=== PATIENT | female | born 1985 | race Caucasian/White ===

== ENCOUNTER 2016-09-13 16:32 | Emergency (ER) | payer OTHER ==
[2016-09-13 16:41] VITALS: TEMP 98.2
--- NOTE | 2016-09-13 17:19 | ED ---
General Adult HPI - General Chief complaint: Recheck/Abnormal Lab/Rx Stated complaint: Stitches Opened Post Op Time Seen by Provider: 09/13/16 16:45 Source: patient, RN notes reviewed Mode of arrival: ambulatory Limitations: no limitations - History of Present Illness Initial comments: This patient is a 30-year-old woman who presents with the complaint of difficulty with bowel movements and pain at the anus. She relates that she had internal hemorrhoidectomy on August 29, by Dr. Amador. She was told that the follow-up, in the week that things looked good and that there was no infection. The patient states however that for the past week or so she is having increasing amounts of pain at the anus when she tries have a bowel movement. She is not able to pass stool well. She denies abdominal pain. No fever or chills. -: days(s) Quality: sharp Consistency: intermittent Improves with: none Worsens with: other (Bowel movement) Associated Symptoms: other (Constipation) - Related Data Home Medications Medication Instructions Recorded Confirmed Ibuprofen [Motrin] 800 mg PO Q8H PRN 09/13/16 09/13/16 Previous Rx's Medication Instructions Recorded Hydrocodone/Acetaminophen [[place] 1 each PO Q6HR PRN #20 tab 09/13/16 5-325] Allergies Allergy/AdvReac Type Severity Reaction Status Date / Time latex Allergy Rash/Hives Verified 09/13/16 17:01 Review of Systems ROS Statement: Those systems with pertinent positive or pertinent negative responses have been documented in the HPI. ROS Other: All systems not noted in ROS Statement are negative. Constitutional: Denies: fever, chills Respiratory: Reports: cough (Patient states she has a cold.). Denies: dyspnea Cardiovascular: Denies: chest pain, palpitations, syncope Gastrointestinal: Reports: constipation. Denies: abdominal pain, nausea, vomiting, diarrhea, melena, hematochezia Genitourinary: Denies: dysuria, hematuria Musculoskeletal: Denies: back pain Skin: Denies: rash Past Medical History Past Medical History: No Reported History Additional Past Medical History / Comment(s): Obstetric history: Her first delivery was a vaginal delivery 7 lbs. 6 oz. in 2012. This is her second . She's had care with Dr. Chavez since 8 weeks gestation. Blood type is A+, antibodies negative, rubella immune, hepatitis B surface antigen, RPR nonreactive. GBS positive. History of Any Multi-Drug Resistant Organisms: None Reported Past Surgical History: Tubal Ligation Additional Past Surgical History / Comment(s): hemorroidectomy Past Anesthesia/Blood Transfusion Reactions: No Reported Reaction Past Psychological History: No Psychological Hx Reported Smoking Status: Current every day smoker Past Alcohol Use History: None Reported Past Drug Use History: None Reported - Past Family History Father Family Medical History: Diabetes Mellitus General Exam Limitations: no limitations General appearance: alert, in no apparent distress Respiratory exam: Present: normal lung sounds bilaterally. Absent: respiratory distress, wheezes, rales, rhonchi, stridor Cardiovascular Exam: Present: regular rate (The rate is 92 at my exam), normal rhythm, normal heart sounds. Absent: systolic murmur, diastolic murmur, rubs, gallop GI/Abdominal exam: Present: soft, diminished bowel sounds. Absent: distended, tenderness, guarding, rebound, organomegaly, mass, pulsatile mass, hernia Rectal exam: Present: hemorrhoids, tenderness, other (The patient does have external hemorrhoid present, but they are not thrombosed and they're not tender. Patient does have anal stricture, which barely admits a finger for exam. There is also hard stool.). Absent: mass Extremities exam: Present: normal inspection, normal capillary refill. Absent: pedal edema, calf tenderness Back exam: Absent: CVA tenderness (R), CVA tenderness (L) Neurological exam: Present: alert Skin exam: Present: warm, dry, intact, normal color. Absent: rash Course Vital Signs 09/13/16 09/13/16 16:38 19:45 Temperature 98.2 F Pulse Rate 116 H 88 Respiratory 20 18 Rate Blood Pressure 119/66 112/68 O2 Sat by Pulse 98 96 Oximetry Medical Decision Making - Medical Decision Making Patient is a 30-year-old woman presenting with pain at the anus following a hemorrhoidectomy. The exam does not show signs of infection. The exam appears to show some stricture or spasm at the anus, and this appears to be causing the patient's pain. No palpable masses. The patient stated that her symptoms had resolved after oral analgesic. Discussed appropriate follow-up and further outpatient care. Also discussed return parameters. - Lab Data Result diagrams: 09/13/16 18:52 09/13/16 18:52 Lab Results 09/13/16 09/13/16 09/13/16 Range/Units 18:52 18:52 19:20 WBC 10.4 (3.8-10.6) k/uL RBC 4.82 (3.80-5.40) m/uL Hgb 13.5 (11.4-16.0) gm/dL Hct 43.5 (34.0-46.0) % MCV 90.3 (80.0-100.0) fL MCH 28.0 (25.0-35.0) pg MCHC 31.0 (31.0-37.0) g/dL RDW 12.9 (11.5-15.5) % Plt Count 275 (150-450) k/uL Neutrophils % 80 % Lymphocytes % 15 % Monocytes % 3 % Eosinophils % 1 % Basophils % 0 % Neutrophils # 8.3 H (1.3-7.7) k/uL Lymphocytes # 1.6 (1.0-4.8) k/uL Monocytes # 0.3 (0-1.0) k/uL Eosinophils # 0.1 (0-0.7) k/uL Basophils # 0.0 (0-0.2) k/uL ESR Cancelled 10 Sodium 143 (137-145) mmol/L Potassium 4.6 (3.5-5.1) mmol/L Chloride 104 (98-107) mmol/L Carbon Dioxide 24 (22-30) mmol/L Anion Gap 15 mmol/L BUN 14 (7-17) mg/dL Creatinine 0.60 (0.52-1.04) mg/dL Est GFR (MDRD) Af Amer >60 (>60 ml/min/1.73 sqM) Est GFR (MDRD) Non-Af >60 (>60 ml/min/1.73 sqM) Glucose 91 (74-99) mg/dL Calcium 10.4 H (8.4-10.2) mg/dL Total Bilirubin 0.5 (0.2-1.3) mg/dL AST 16 (14-36) U/L ALT 27 (9-52) U/L Alkaline Phosphatase 75 (38-126) U/L Total Protein 8.0 (6.3-8.2) g/dL Albumin 4.9 (3.5-5.0) g/dL Disposition Clinical Impression: Stricture of anus, Proctalgia Disposition: HOME SELF-CARE Condition: Good Instructions: Anal Fissure (ED) Prescriptions: Hydrocodone/Acetaminophen [[place] 5-325] 1 each PO Q6HR PRN #20 tab PRN Reason: Pain Referrals: Андрей Peterson MD [Primary Care Provider] - 1-2 days
--- NOTE | 2016-09-13 17:58 | XR ---
EXAMINATION TYPE: XR KUB DATE OF EXAM: 09/13/2016 5:50 PM COMPARISON: NONE HISTORY: Abdominal pain TECHNIQUE: 2 views FINDINGS: Bowel gas pattern is normal. There is no sign of intestinal obstruction or pneumoperitoneum . Fecal pattern is normal. There are no pathologic calcifications over the kidneys. Lung bases are cl ear. There are clips from tubal ligation. Bony structures appear intact. IMPRESSION: Nonacute abdomen.
[2016-09-13] MEDS ORDERED: DICYCLOMINE 10 MG CAP PO STA (18:25)
[2016-09-13] MEDS ORDERED: HYDROcodone/APAP 5-325MG 1 EACH TAB PO STA (18:25)
[2016-09-13 19:08] LABS: Basophils % (A) 0 %; CH 29.3; CHCM 32.6; Eosinophils # (A) 0.1 k/uL (0-0.7); Eosinophils % (A) 1 %; HCT 43.5 % (34.0-46.0); HDW 2.54; HGB 13.5 gm/dL (11.4-16.0); Luc # (Auto) 0.08; Luc % (Auto) 1; Lymphocytes # (A) 1.6 k/uL (1.0-4.8); Lymphocytes % (A) 15 %; MCV 90.3 fL (80.0-100.0); Mean Platelet Volume 7.7; Monocytes # (A) 0.3 k/uL (0-1.0); Monocytes % (A) 3 %; Neutrophils # (A) 8.3 k/uL (1.3-7.7); Neutrophils % (A) 80 %; RBC 4.82 m/uL (3.80-5.40); RDW 12.9 % (11.5-15.5); WBC 10.4 k/uL (3.8-10.6); WBC (Perox) 10.13
[2016-09-13 19:14] LABS: ALT 27 U/L (9-52); AST 16 U/L (14-36); Alkaline Phosphatase 75 U/L (38-126); Anion Gap 15 mmol/L; Blood Urea Nitrogen 14 mg/dL (7-17); Calcium 10.4 mg/dL (8.4-10.2); Carbon Dioxide 24 mmol/L (22-30); Chloride 104 mmol/L (98-107); Glucose 91 mg/dL (74-99); Non-African American GFR(MDRD) >60 (>60 ml/min/1.73 sqM); Potassium 4.6 mmol/L (3.5-5.1); Sodium 143 mmol/L (137-145); Total Bilirubin 0.5 mg/dL (0.2-1.3)
[2016-09-13 19:53] VITALS: BP 112/68; PULSE 88; RESP 18
== END 2016-09-13 19:45 | disposition home or self-care (01) ==
LOC: EC 16:32
DX: K62.4 Stenosis of anus and rectum (principal); K59.00 Constipation, unspecified; F17.200 Nicotine dependence, unspecified, uncomplicated; Z91.040 Latex allergy status; Z98.890 Other specified postprocedural states
CPT/HCPCS: 36415; 74000; 80053; 85025; 85652; 99283

== ENCOUNTER 2017-10-01 16:46 | Emergency (ER) | payer OTHER ==
[2017-10-01 17:03] VITALS: BP 130/71; PULSE 88; RESP 20; TEMP 98.3
--- NOTE | 2017-10-01 17:38 | XR ---
EXAMINATION TYPE: XR foot complete RT DATE OF EXAM: 10/01/2017 COMPARISON: NONE HISTORY: Heel pain. Possible foreign body TECHNIQUE: 3 views FINDINGS: I see no fracture nor dislocation. Joint spaces are normal. There is no sign of radiopaque foreign body. Metatarsals are intact. IMPRESSION: Normal exam. No foreign body seen.
--- NOTE | 2017-10-01 17:40 | ED ---
Extremity Problem HPI - General Chief complaint: Extremity Problem,Nontraumatic Stated complaint: bottom of heel pain Time Seen by Provider: 10/01/17 17:06 Source: patient, RN notes reviewed Mode of arrival: ambulatory Limitations: no limitations - History of Present Illness Initial comments: This is a 31-year-old female who presents to the emergency department with chief complaint of right heel pain. Patient states that she has been experiencing pain in her right heel for the past one month. She states that it has gotten worse over the last week. She states that she is unable to put pressure on her heel when she walks. She states that there is excruciating pain and feels like something is going to pop out of her foot when she bears weight. Patient denies any specific injuries or trauma. She denies any concerns for foreign body. States that the pain is constant with any bearing of weight and shoots up the ankle. Denies fever, chills, chest pain, shortness of breath, abdominal pain, nausea or vomiting, numbness or tingling, headache or vision changes. - Related Data Home Medications Medication Instructions Recorded Confirmed Ibuprofen [Motrin] 800 mg PO Q8H PRN 09/13/16 09/13/16 Previous Rx's Medication Instructions Recorded Hydrocodone/Acetaminophen [[place] 1 each PO Q6HR PRN #20 tab 09/13/16 5-325] Allergies Allergy/AdvReac Type Severity Reaction Status Date / Time latex Allergy Rash/Hives Verified 10/01/17 17:02 Review of Systems ROS Statement: Those systems with pertinent positive or pertinent negative responses have been documented in the HPI. ROS Other: All systems not noted in ROS Statement are negative. Past Medical History Past Medical History: No Reported History Additional Past Medical History / Comment(s): Obstetric history: Her first delivery was a vaginal delivery 7 lbs. 6 oz. in 2012. This is her second . She's had care with Dr. Chavez since 8 weeks gestation. Blood type is A+, antibodies negative, rubella immune, hepatitis B surface antigen, RPR nonreactive. GBS positive. History of Any Multi-Drug Resistant Organisms: None Reported Past Surgical History: Tubal Ligation Additional Past Surgical History / Comment(s): hemorroidectomy Past Anesthesia/Blood Transfusion Reactions: No Reported Reaction Past Psychological History: Anxiety, Depression Smoking Status: Former smoker Past Alcohol Use History: None Reported Past Drug Use History: None Reported - Past Family History Father Family Medical History: Diabetes Mellitus General Exam - General Exam Comments Initial Comments: General: Awake and alert, well-developed; in no apparent distress. HEENT: Head atraumatic, normocephalic. Pupils are equal, round and reactive to light. Extraocular movements intact. Oropharynx moist without erythema or exudate. Neck: Supple. Normal ROM. Cardiovascular: Regular rate and rhythm. No murmurs, rubs or gallops. Chest symmetrical. Respiratory: Lungs clear to auscultation bilaterally. No wheezes, rales or rhonchi. Normal respiratory effort with no use of accessory muscles. Musculoskeletal: Normal ROM of right foot and ankle. There is no tenderness on palpation of the Achilles tendon or plantar fascia. Right heel is calloused with a central firm area that is extremely tender on palpation. Sensation is intact. Pedal pulses are 2+ equal and palpable bilaterally. Skin: Min[place], warm and dry without rashes or lesions. Neurological: Alert and oriented x3. CN II-XII grossly intact. Speech is fluent and answers are appropriate. No focal neuro deficits. Psychiatric: Normal mood and affect. No overt signs of depression or anxiety noted. Limitations: no limitations Course Vital Signs 10/01/17 16:59 Temperature 98.3 F Pulse Rate 88 Respiratory 20 Rate Blood Pressure 130/71 O2 Sat by Pulse 99 Oximetry Medical Decision Making - Medical Decision Making This is a 31-year-old female who presents to the emergency department with chief complaint of heel pain. The heel is calloused with a central firm, exquisitely tender area that is palpable superficially. I recommended scraping superficial layer to check for wart, however patient refuses. She will be given a referral to podiatry. She is in no acute distress and will be discharged home. She is in agreement with plan and voices understanding. All questions were answered. - Radiology Data Radiology results: report reviewed X-ray right foot findings: I see no fracture nor dislocation. Joint spaces are normal. There is no sign of radiopaque foreign body. Metatarsals are intact. Impression: Normal exam. No foreign body seen. As read by Dr. Byers. Disposition Clinical Impression: Pain of right heel Disposition: HOME SELF-CARE Condition: Good Instructions: Plantar Wart (ED) Additional Instructions: Please follow-up with Dr. Frascone, podiatry within 1-2 days. Please follow up with primary care provider within 1-2 days. Return to emergency department if symptoms should worsen or any concerns arise. Referrals: Nonstaff,Physician [Primary Care Provider] - 1-2 days Cecilio Robert MD [REFERRING] - 1-2 days Time of Disposition: 17:49
== END 2017-10-01 17:54 | disposition home or self-care (01) ==
LOC: EC 16:46
DX: M79.671 Pain in right foot (principal); Z87.891 Personal history of nicotine dependence; Z91.040 Latex allergy status
CPT/HCPCS: 99283

== ENCOUNTER 2018-02-27 11:48 | Emergency (ER) | payer OTHER ==
[2018-02-27 12:02] VITALS: RESP 18
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
--- NOTE | 2018-02-27 13:57 | CT ---
EXAMINATION TYPE: CT brain brittany wo con DATE OF EXAM: 02/27/2018 COMPARISON: 04/08/2011 HISTORY: pain CT DLP: 1489 mGycm, Automated exposure control for dose reduction was used. CONTRAST: Patient injected with 0 mL of Isovue 300. CT of the brain is performed utilizing 3 mm thick sections through the posterior fossa and 3 mm thick sections through the remaining calvarium. Study is performed within 24 hours of arrival to the hospital. No abnormal hyperdensity is present to suggest an acute intracranial hemorrhage. No mass lesion is evident. No acute infarcts are evident. Ventricles and sulci are appropriate for the patient age. Paranasal sinuses and mastoid air cells within the [id number] are clear. IMPRESSIONS: 1. Normal CT brain. CT cervical spine. COMPARISON: None CT of the cervical spine is performed in the axial plane at 2 mm thick sections. Reconstructed image s in the coronal, and sagittal plane are reviewed on the computer. No acute fractures are evident. Vertebral body alignment is normal. Disc heights are preserved. Vertebral body heights are preserved. No spinal canal stenosis is evident. No neural foraminal stenosis is evident. IMPRESSIONS: 1. Normal CT cervical spine.
[2018-02-27] MEDS ORDERED: IBUPROFEN 600 MG TAB PO STA (14:16)
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
--- NOTE | 2018-02-27 15:15 | XR ---
EXAMINATION TYPE: XR chest 2V DATE OF EXAM: 02/27/2018 COMPARISON: 02/21/2016 HISTORY: Right-sided chest pain TECHNIQUE: Frontal and lateral views of the chest are obtained. FINDINGS: There is no focal air space opacity, pleural effusion, or pneumothorax seen. The cardiac silhouette size is within normal limits. The osseous structures are intact. IMPRESSION: No acute cardiopulmonary process.
[2018-02-27 16:00] VITALS: BP 123/72; PULSE 76; TEMP 98.1
== END 2018-02-27 15:57 | disposition home or self-care (01) ==
LOC: EC 11:48
DX: S16.1XXA Strain of muscle, fascia and tendon at neck level, initial encounter (principal); S22.31XA Fracture of one rib, right side, initial encounter for closed fracture; R40.2412 Glasgow coma scale score 13-15, at arrival to emergency department; Z87.891 Personal history of nicotine dependence; Z91.040 Latex allergy status; Y04.2XXA Assault by strike against or bumped into by another person, initial encounter; Y92.009 Unspecified place in unspecified non-institutional (private) residence as the place of occurrence of the external cause
CPT/HCPCS: 70450; 71046; 72072; 72100; 72125; 99284

== ENCOUNTER 2018-02-28 09:27 | Emergency (ER) | payer OTHER ==
[2018-02-28] MEDS ORDERED: LORazepam 2 MG/ML INJ IM STA (09:42)
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
--- NOTE | 2018-02-28 10:19 | XR ---
EXAMINATION TYPE: XR chest 2V DATE OF EXAM: 02/28/2018 HISTORY: Pain. REFERENCE: Previous study dated 02/27/2018. FINDINGS: The lungs remain clear. Pleural space are clear. The heart is not enlarged. IMPRESSION: NO ACTIVE CARDIOPULMONARY DISEASE.
[2018-02-28 11:57] VITALS: BP 121/70; PULSE 63; RESP 18; TEMP 98
== END 2018-02-28 11:58 | disposition home or self-care (01) ==
LOC: EC 09:27
DX: S22.31XA Fracture of one rib, right side, initial encounter for closed fracture (principal); F41.0 Panic disorder [episodic paroxysmal anxiety]; Z87.891 Personal history of nicotine dependence; Z91.040 Latex allergy status; Y04.0XXA Assault by unarmed brawl or fight, initial encounter
CPT/HCPCS: 71046; 99284; 96372; J2060